=== PATIENT | male | born 1990 | race Two or more races ===

== ENCOUNTER 2025-02-21 15:07 | Outpatient (RCR) | payer MEDICAID, SELFPAY ==
--- NOTE | 2025-02-21 15:56 | PT.OIERPT ---
PT OP Initial Eval Patient Information Outpatient Physical Therapy Treatment Date: 02/21/25 Visit Reasons: pain in rt knee Medical Diagnosis: Right Knee Pain Treatment Dx #1: RIght Knee Pain Start of Care: 02/21/25 Date of Onset: 1 month ago Smoking Status Smoking Status: Never smoker Initial Assessment Subjective: Pt is a 34 y/o male reports of right knee pain (8) that radiates up to his lower back. Knee Xray showed mild OA but no MRI has been done for the knee or lower back. Pt reports of more pain with prolonged sitting, bending down, looking down, pivoting, and lifting. Pt denies of knee injury in the past but has gain ~ 60 lbs in the last year. Pt feels that his weight gain is related to medication. Pt's lower back has not been screen out. Objective: Right Knee AROM: all motions are WNL Right Knee MMTs: grossly 4/5 Right Hip MMTs: grossly 4-/5 Special Test (-) Camelia (-) Thessaly (-) jericho (-) ant knee compression test Palpation: no TTP around joint line Assessment: Pt demonstrate normal knee ROM and strength with minimal limitation. At this time Pt will not benefit from skilled physical therapy for the knee. Recommend physical therapy for the lower back which may be the nature of patient's pain. Pt was evaluated and d/c from physical therapy. Recommend patient to return back to PCP and follow up; if back physical therapy is indicated PCP will order physical therapy; thank you for your referrals. Short Term and Mandarin Speaking Nanny Goals 1) Eval and D/C 2) Follow up with MD 3) Recommend physical therapy for lower back Treatment Plan Frequency and Duration: 1x Certification Dates: 02/21/25 to 05/24/25 Procedure Charges OP PT Eval Mod Complex 30 minutes: Yes
== END 2025-03-10 23:59 | disposition home or self-care (01) ==
LOC: CPTX 15:07
PROVIDERS: PCP Family Medicine; Referring Provider Family Medicine; Visit Provider Family Medicine
DX: M25.561 Pain in right knee (principal); M17.11 Unilateral primary osteoarthritis, right knee
CPT/HCPCS: 97162